=== PATIENT | female | born 1975 | race Caucasian/White ===

== ENCOUNTER 2017-09-21 06:00 | Day surgery (SDC) | payer OTHER, MEDICAID ==
[2017-09-21] MEDS ORDERED: MIDAZOLAM 1 MG/ML 2 ML INJ (07:45)
[2017-09-21] MEDS ORDERED: FENTAnyl 50 MCG/ML VIAL (07:45)
== END 2017-09-21 13:13 | disposition home or self-care (01) ==
LOC: GIL 06:00
DX: K29.50 Unspecified chronic gastritis without bleeding (principal); K21.9 Gastro-esophageal reflux disease without esophagitis; E03.9 Hypothyroidism, unspecified
CPT/HCPCS: 43239; 84703; 88305; 88312